=== PATIENT | female | born 1940 | race Caucasian/White ===

== ENCOUNTER 2020-10-17 11:28 | Outpatient (NON) | payer MEDICARE, SELFPAY ==
[2020-10-17 12:15] LABS: Add Urine Microscopic? YES; Appearance Urine Clear (Clear); Bacteria Urine Trace /hpf; Bilirubin Urine Negative (Negative); Blood Urine Negative (Negative); Color Urine Colorless (Yellow); Glucose Urine UA 2+ mg/dL (Negative); Ketones Urine Negative (Negative); Leukocyte Esterase Ur Trace LEU/UL (NEGATIVE); Mucus Urine Rare /lpf; Nitrate Urine Negative (Negative); Protein Urine Negative (Negative); RBC Urine 0-2 /hpf (0-2); Specific Grav Ur 1.008 (1.001-1.035); Squamous Epithelial Cell Urine Occasional /hpf (Few); Transitional Epi Cells Urine Rare /hpf (None Seen); Urobilinogen Urine Negative mg/dL (<2.0); WBC Urine 0-3 /hpf (0-3)
== END 2020-10-17 11:29 ==
PROVIDERS: PCP Family Medicine
DX: R45.1 Restlessness and agitation (principal); R00.0 Tachycardia, unspecified
CPT/HCPCS: 81001; 87086; 87088

== ENCOUNTER 2024-01-09 23:09 | Inpatient (IN) | payer MEDICARE, MEDICAID, SELFPAY ==
--- NOTE | ~2024-01-09 | XR_ITS ---
Portable chest x-ray Comparison: 09/13/2018 Clinical History: Weakness Findings: There is hazy airspace disease in the right upper lobe. There is patchy airspace disease a t the left lung base. Cardiomediastinal silhouette is stable. Bones and soft tissues are unremarkabl e. Impression: Patchy airspace disease right upper lobe and left lung base. Findings suggest multifocal pneumonia. F ollow-up to radiographic resolution is advised. Chest CT could also be considered to further evaluate , as indicated. Reviewed, dictated and finalized at location M. Impression: Patchy airspace disease right upper lobe and left lung base. Findings suggest m ultifocal pneumonia. Follow-up to radiographic resolution is advised. Chest CT could also be considered to further evaluate, as indicated.
--- NOTE | ~2024-01-09 | CT_ITS ---
CT head without contrast Indication: Status post fall Technique: Serial scans were obtained through the brain without the administration of contrast. Dose reduction technique was used on this scan by utilizing automated exposure control and iterative recon struction technique. The dose-length product (DLP) was 605.33 mGy-cm. Findings: There is no evidence of intracranial hemorrhage, mass lesion, or acute infarct. The ventri cles and subarachnoid spaces are dilated, consistent with moderate atrophy. Low attenuation regions are seen within the periventricular white matter bilaterally, likely representing changes from chroni c microvascular ischemic disease. There is no evidence of edema, mass effect or midline shift. The visualized paranasal sinuses and mastoid air cells are clear. Impression: No intracranial hemorrhage, mass, or acute infarct. Atrophy and chronic white matter changes, as above. Reviewed, dictated and finalized at location . Impression: No intracranial hemorrhage, mass, or acute infarct. Atrophy and chronic white matter changes, as above.
--- NOTE | ~2024-01-09 | CT_ITS ---
Noncontrast CT scan of the cervical spine Technique: Multiple contiguous axial [address] images of the cervical spine were obtained and rec onstructed in 2D sagittal and coronal planes on the acquisition scanner. Dose reduction technique was used on this scan by utilizing automated exposure control, adjustment of the mA and/or kV according to patient size. The dose-length product (DLP) was 325.09 mGy-cm. Clinical History: Pain Findings: No fractures or dislocations. There is mild to moderate degenerative disc change from C3 t hrough C6. No prevertebral soft tissue swelling. 5 mm right apical pulmonary nodule noted. Impression: No fracture or subluxation of the cervical spine. 5 mm right apical pulmonary nodule. According to Fleischner Society criteria, for a low-risk patient, no further follow-up required. For a high-risk patient, consider 12 month follow-up CT. Reviewed, dictated and finalized at [facility]. Impression: No fracture or subluxation of the cervical spine. 5 mm right apical pulmonary nodule. According to Fleischner Society criteria, f or a low-risk patient, no further follow-up required. For a high-risk patient, consider 12 month follow-up CT.
[2024-01-09 23:11] VITALS: BP 162/85; PULSE 88; RESP 15; TEMP 37.3; O2SAT 95
--- NOTE | 2024-01-09 23:31 | ECG_ITS ---
SEE SCANNED COPY FOR CONFIRMED REPORT MTDD
--- NOTE | 2024-01-09 23:52 | ED.GENADULT ---
HPI - General Adult General Chief complaint: Fall Stated complaint: AMS, fall 2-3 days ago Time Seen by Provider: 01/09/24 23:13 History of Present Illness HPI narrative: Patient 83-year-old female presents emergency department with chief complaint of generalized weakness and declined since fall. Several days ago the patient had a presumed ground level fall at the facility where she is a resident of the staff found the patient laying on the floor were able to get the patient up and since then she has been progressively weaker and not as active as normal. Patient does have history of dementia they have noticed that she has not been eating and drinking her normal amount they report there have been no fevers. Related Data Allergies Allergy/AdvReac Type Severity Reaction Status Date / Time No Known Allergies Allergy Unknown . Verified 09/09/20 11:36 Review of Systems Review of Systems: A 10 system review of systems was completed on the patient and is negative except for what is stated in the HPI. Nursing and ancillary documentation was reviewed. [facility] Past Medical History Medical History (Updated 01/10/24 @ 00:52 by Jaylon Zaidi MD) Anxiety Cerebrovascular accident (CVA) Essential hypertension Hypothyroidism Mild episode of recurrent major depressive disorder Mixed hyperlipidemia Type 2 diabetes mellitus without complication, without long-term current use of insulin Unhealthy alcohol drinking behavior Unilateral hearing loss Unspecified dementia without behavioral disturbance Surgical History Surgical History History of thyroidectomy Hx of hysterectomy, total Family History Family History Mother Carcinoma of colon Hypertension Other Diabetes mellitus Social History Social History Smoking status: Never smoker Second hand tobacco smoke exposure: No Alcohol intake: current Exam Narrative: GENERAL: Well-appearing, well-nourished, and in no acute distress. HEAD: Normocephalic, atraumatic. EYES: PERRLA and EOMI. ENT: Nares clear, no rhinorrhea or epistaxis. Mucous membranes moist. NECK: Supple. CHEST: Clear to auscultation. No respiratory distress. HEART: Regular rate and rhythm. No murmur heard. Normal peripheral pulses. ABDOMEN: Soft, nontender, nondistended, normal active bowel sounds. EXTREMITIES: Normal range of motion. No edema. SKIN: Warm, dry, no rash. NEURO: No focal deficits. Alert and oriented x2. PSYCH: Normal mood and affect. Course Vital Signs Vital signs: Vital Signs Temperature 37.3 C 01/09/24 23:11 Pulse Rate 88 01/09/24 23:11 Respiratory Rate 15 01/09/24 23:11 Blood Pressure 162/85 H 01/09/24 23:11 Pulse Oximetry 95 01/09/24 23:11 Oxygen Delivery Room Air 01/09/24 23:11 Temperature 37.3 C 01/09/24 23:11 Pulse Rate 98 01/10/24 00:18 Respiratory Rate 18 01/10/24 00:18 Blood Pressure 149/82 H 01/10/24 00:18 Pulse Oximetry 94 01/10/24 00:18 Oxygen Delivery Room Air 01/09/24 23:11 Medical Decision Making MDM Narrative Medical decision making narrative: Differential diagnosis includes UTI, intracranial hemorrhage, pneumonia, electrolyte abnormality, dehydration Laboratory studies were obtained on the patient showed a white count of 17.4 electrolytes showed a BUN of 18 creatinine 0.7 lactate was 1.4 troponin was less than 0.012 procalcitonin 0.2 urinalysis was turbid positive for nitrate 2+ leukocytes greater than 100 white blood cells and 4+ bacteria COVID flu and RSV were negative Chest x-ray showed no focal infiltrate Patient was started on Rocephin for UTI CT head CT C-spine were obtained Vital Signs Vital Signs: Vital Signs Temperature 37.3 C 01/09/24 23:11 Pulse Rate 88 01/09/24 23:11 Respira
[2024-01-09 23:56] LABS: Basophils Absolute Auto 0.1 K/mm3 (0.0-0.1); Basophils Percent Auto 0.3 % (0.2-1.2); Eosinophils Percent Auto 0.2 % (0-4.4); Hematocrit 43.4 % (37.0-47.0); Hemoglobin 13.7 g/dL (12.0-15.0); Immature Granulocyte Absolute 0.22 K/mm3 (0.00-0.031); Immature Granulocyte Percent A 1.3 % (0-0.5); Lymphocytes Absolute Auto 1.55 K/mm3 (0.9-3.2); Lymphocytes Percent Auto 8.9 % (18.3-44.2); Mean Corpuscular HGB Conc 31.6 g/dl (32-36); Mean Corpuscular Volume 88.6 fl (80-100); Mean Platelet Volume 9.5 fl (7.4-10.4); Monocytes Absolute Auto 1.3 K/mm3 (0.1-0.6); Monocytes Percent Auto 7.3 % (2.6-8.5); Neutrophils Absolute Auto 14.2 K/mm3 (1.3-6.7); Platelet Count Result 363 k/mm3 (150-375); Red Cell Distribution Width 13.6 % (11.5-14.5); White Blood Count 17.4 K/mm3 (4.5-10.0)
[2024-01-10] VITALS (13 sets, daily range): BP systolic 137–149; BP diastolic 60–82; PULSE 72–102; RESP 15–20; TEMP 36.3–36.4; O2SAT 94–98; BMI 26.6
[2024-01-10 00:06] LABS: INR 1.2; Prothrombin Time 15.4 Seconds (11.1-14.7)
[2024-01-10 00:07] LABS: Partial Thromboplastin Time 30.4 Seconds (22.3-36.8)
[2024-01-10 00:10] LABS: Lactic Acid Reflex 1.4 mmol/L (0.7-2.0)
[2024-01-10 00:11] LABS: Alanine Aminotransferase 19 U/L (6-35); Albumin Level 3.9 g/dL (3.5-5.1); Alkaline Phosphatase 130 U/L (38-126); Anion Gap 7 mmol/L (4-12); Aspartate Amino Transferase 33 U/L (14-36); Blood Urea Nitrogen 18 mg/dL (7-17); Calcium 8.9 mg/dL (8.4-10.2); Carbon Dioxide 32 mmol/L (22-30); Chloride 102 mmol/L (98-107); Creatine Kinase 39 U/L (30-135); Estimated Glomerular Filt Rate > 60; Glucose 287 mg/dL (65-110); Magnesium 2.1 mg/dL (1.6-2.3); Potassium 3.4 mmol/L (3.4-5.0); Sodium 141 mmol/L (137-145)
[2024-01-10 00:22] LABS: Troponin I < 0.012 ng/mL (0.000-0.034)
[2024-01-10 00:26] LABS: Procalcitonin 0.2 ng/mL
[2024-01-10 00:28] LABS: Add Urine Microscopic? YES; Appearance Urine Turbid (Clear); Bacteria Urine 4+ /hpf; Bilirubin Urine Negative (Negative); Blood Urine 1+ (Negative); Budding Yeast Urine Present /hpf; Color Urine Dark Yellow (Yellow); Glucose Urine UA 3+ mg/dL (Negative); Ketones Urine 2+ mg/dL (Negative); Leukocyte Esterase Ur 2+ LEU/UL (Negative); Mucus Urine Present /lpf; Need Manual Microscopic Reviewed; Nitrate Urine Positive (Negative); Protein Urine 2+ mg/dL (Negative); Specific Grav Ur 1.034 (1.001-1.035); Squamous Epithelial Cell Urine Occasional /hpf (Few); WBC Urine >100 /hpf (0-3); pH Urine 5.5 (5.0-9.0)
[2024-01-10 00:46] LABS: Influenza A QL RT-PCR Negative (Negative); Influenza B QL RT-PCR Negative (Negative); RSV RNA, RT-PCR Negative (Negative); SARS-CoV-2 RNA PCR Negative (Negative)
--- NOTE | 2024-01-10 05:40 | ADMGEN ---
This patient, Janelle Ring, was admitted to 2 Medical Room 247-. Patient/family oriented to hospital policies and general routines including ID bracelet, bed and alarms, visiting hours, pain management, procedures, bathroom and other care routines, personal items, smoking policy, room service/diet, and visiting hours. Information on how to activate the Rapid Response Team has been discussed. Patient/Family are encouraged to report perceived risks to care and to ask questions if they do not understand what they are told or what they should do.
[2024-01-10 06:18] LABS: Troponin I < 0.012 ng/mL (0.000-0.034)
--- NOTE | 2024-01-10 07:02 | PM.IMHP ---
H&P: HPI History of Present Illness Date/Time: 01/10/24 07:02 Chief Complaint: fall, weakness Narrative: This is an 83-year-old with a past medical history significant for anxiety, CVA, hypertension, hypothyroidism, depression, mixed hyperlipidemia, type 2 diabetes, and dementia who presents from [facility] after suffering a ground level fall that occurred a few days ago. Patient was not initially sent to the ER for evaluation at time of fall. She has progressively gotten weaker over the last few days prompting staff to have her evaluated. She is a pleasantly confused lady who has the ability to answer all of my orientation questions by reading her white board. When I asked why she was brought to the hospital she says that she doesn't know as she is feeling fine. I asked if she recently had a fall at her [facility] but she denies this. She denies any and all complaints. When discussing her surgical history she states she has none, but review of medical chart shows hysterectomy and thyroidectomy. The remainder of the H&P is supplemented from review of the medical chart. An the ED, labs were significant for a white count of 17.4 with a UA concerning for UTI. Lactic acid normal at 1.4. Chest x-ray is concerning for patchy airspace disease to right upper and left lung base consistent with multifocal pneumonia. Her head CT was negative for acute intracranial findings. Cervical some spine CT negative for fracture or subluxation. There was an incidental 5 mm right apical pulmonary nodule found. Blood cultures and urine cultures were drawn and patient received 1 g of Rocephin. She is being admitted to the hospitalist service for continued care surrounding pneumonia and UTI. She will benefit from PT and OT consultation for her progressive weakness. [facility] Past Medical History Medical History Anxiety Cerebrovascular accident (CVA) Essential hypertension Hypothyroidism Mild episode of recurrent major depressive disorder Mixed hyperlipidemia Type 2 diabetes mellitus without complication, without long-term current use of insulin Unhealthy alcohol drinking behavior Unilateral hearing loss Unspecified dementia without behavioral disturbance Surgical History Surgical History History of thyroidectomy Hx of hysterectomy, total Family History Family History Mother Carcinoma of colon Hypertension Other Diabetes mellitus Social History Social History (Updated 01/10/24 @ 10:49 by Rowena Rice APRN) Smoking status: Never smoker Second hand tobacco smoke exposure: No Alcohol intake: current Alcohol use details: patient states she drinks 1-2 beers a day. Unsure if this is true or not since she is at a facility. Substance use: never Do You Feel Safe in your Home?: Yes Lack of Transportation: No Lack of Food: Never True Current Housing: I Have Housing Concerned About Future Housing: No Difficulty Paying Gas/Electric Bills: No Difficulty Paying for Meds: No Currently Unemployed: No Education: Don't Know Difficulty w/ Childcare or Family Care: No Spiritual care concerns: No Meds Home Medications and Allergies Home Medications Medication Instructions Recorded Confirmed Type simvastatin 20 mg tablet 20 mg PO DAILY #90 tabs 09/09/20 01/10/24 Rx levothyroxine 25 mcg tablet 25 mcg PO DAILY #90 tabs 02/08/21 01/10/24 Rx buspirone 7.5 mg tablet 7.5 mg PO BID 01/10/24 01/10/24 History divalproex 125 mg tablet,delayed 125 mg PO BID 01/10/24 01/10/24 History release donepezil 5 mg tablet (Aricept) 10 mg PO DAILY 01/10/24 01/10/24 History losartan 25 mg tablet 50 mg PO DAILY 01/10/24 01/10/24 History memantine 5 mg tablet 5 mg PO BID 01/10/24 01/10/24 History polyethylene glycol 3350 17 gram 17 g PO DAILY PRN Constipation 01/10/24
[2024-01-10 08:19] LABS: Hemoglobin A1C 8.8 % (<5.7)
[2024-01-10 08:30] LABS: Procalcitonin 0.2 ng/mL
[2024-01-10 08:36] LABS: Glucose Point of Care 249 mg/dl (65-105)
[2024-01-10 08:55] LABS: Basophils Absolute Auto 0.1 K/mm3 (0.0-0.1); Basophils Percent Auto 0.3 % (0.2-1.2); Eosinophils Percent Auto 0.3 % (0-4.4); Hematocrit 43.8 % (37.0-47.0); Hemoglobin 13.7 g/dL (12.0-15.0); Immature Granulocyte Absolute 0.17 K/mm3 (0.00-0.031); Immature Granulocyte Percent A 1.1 % (0-0.5); Lymphocytes Absolute Auto 1.67 K/mm3 (0.9-3.2); Lymphocytes Percent Auto 11.1 % (18.3-44.2); Mean Corpuscular HGB Conc 31.3 g/dl (32-36); Mean Corpuscular Hemoglobin 28.5 pg (26-34); Mean Corpuscular Volume 91.1 fl (80-100); Mean Platelet Volume 9.9 fl (7.4-10.4); Monocytes Percent Auto 6.7 % (2.6-8.5); Neutrophils Absolute Auto 12.2 K/mm3 (1.3-6.7); Neutrophils Percent Auto 80.5 % (45.5-73.1); Platelet Count Result 358 k/mm3 (150-375); Red Blood Count 4.81 M/mm3 (4.2-5.4); Red Cell Distribution Width 13.5 % (11.5-14.5); White Blood Count 15.1 K/mm3 (4.5-10.0)
[2024-01-10] MEDS: LEVOTHYROXINE SODIUM 25 MCG TABLET PO (08:56)
[2024-01-10] MEDS: busPIRone HCL 2.5 MG TABLET 7.5 MG PO ×2 (08:56→19:47)
[2024-01-10] MEDS: MEMANTINE 5 MG TABLET PO ×2 (08:57→17:48)
[2024-01-10] MEDS: AZITHROMYCIN 500 MG/NS 250 ML 500 MG/250 ML BAG 250 MG IVPB (08:57)
[2024-01-10] MEDS: LOSARTAN POTASSIUM 25 MG TABLET 50 MG PO (08:57)
[2024-01-10] MEDS: SIMVASTATIN 20 MG TABLET PO (08:57)
[2024-01-10] MEDS: guaiFENesin 12 HR 600 MG TABCR 1200 MG PO ×2 (08:57→19:47)
[2024-01-10] MEDS: DONEPEZIL HCL 5 MG TABLET 10 MG PO (08:57)
[2024-01-10] MEDS: DIVALPROEX SODIUM DR 125 MG TABEC PO ×2 (08:57→17:48)
[2024-01-10] MEDS: INSULIN ASPART (*BKC) 100 UNITS/ML SUB-Q (08:58)
[2024-01-10 09:01] LABS: Alanine Aminotransferase 18 U/L (6-35); Albumin Level 3.7 g/dL (3.5-5.1); Alkaline Phosphatase 116 U/L (38-126); Anion Gap 8 mmol/L (4-12); Aspartate Amino Transferase 33 U/L (14-36); Bilirubin,Total 0.9 mg/dL (0.2-1.3); Blood Urea Nitrogen 19 mg/dL (7-17); Calcium 8.8 mg/dL (8.4-10.2); Carbon Dioxide 31 mmol/L (22-30); Chloride 106 mmol/L (98-107); Estimated CRCL calculation 40 ml/min; Estimated Glomerular Filt Rate > 60; Glucose 243 mg/dL (65-110); Potassium 3.7 mmol/L (3.4-5.0); Sodium 145 mmol/L (137-145)
[2024-01-10] MEDS: ENOXAPARIN 40 MG/0.4 ML SYRINGE SUB-Q (09:17)
[2024-01-10 11:47] LABS: Glucose Point of Care 171 mg/dl (65-105)
[2024-01-10] MEDS: IPRATROPIUM 0.5 MG/ALBUTEROL SULFATE 2.5 MG AMPUL.NEB 3 ML INHALATION ×2 (13:47→20:20)
[2024-01-10 17:05] LABS: Glucose Point of Care 182 mg/dl (65-105)
[2024-01-10] MEDS: cefTRIAXone 2 GM/NS 100 ML 2 GM/100 ML BAG IVPB (19:55)
[2024-01-10 21:00] LABS: Glucose Point of Care 220 mg/dl (65-105)
[2024-01-11] VITALS (12 sets, daily range): BP systolic 139–158; BP diastolic 65–72; PULSE 81–109; RESP 17–18; TEMP 36.4–37.3; O2SAT 93–98
[2024-01-11] MEDS: IPRATROPIUM 0.5 MG/ALBUTEROL SULFATE 2.5 MG AMPUL.NEB 3 ML INHALATION ×4 (02:35→20:05)
[2024-01-11 05:37] LABS: Basophils Percent Auto 0.2 % (0.2-1.2); Eosinophils Absolute Auto 0.1 K/mm3 (0-0.3); Eosinophils Percent Auto 0.4 % (0-4.4); Hematocrit 41.5 % (37.0-47.0); Immature Granulocyte Absolute 0.13 K/mm3 (0.00-0.031); Immature Granulocyte Percent A 1.1 % (0-0.5); Lymphocytes Absolute Auto 1.41 K/mm3 (0.9-3.2); Lymphocytes Percent Auto 11.7 % (18.3-44.2); Mean Corpuscular HGB Conc 31.3 g/dl (32-36); Mean Corpuscular Hemoglobin 28.3 pg (26-34); Mean Corpuscular Volume 90.4 fl (80-100); Mean Platelet Volume 9.6 fl (7.4-10.4); Monocytes Absolute Auto 0.9 K/mm3 (0.1-0.6); Monocytes Percent Auto 7.5 % (2.6-8.5); Neutrophils Absolute Auto 9.6 K/mm3 (1.3-6.7); Neutrophils Percent Auto 79.1 % (45.5-73.1); Platelet Count Result 312 k/mm3 (150-375); Red Blood Count 4.59 M/mm3 (4.2-5.4); Red Cell Distribution Width 13.4 % (11.5-14.5); White Blood Count 12.1 K/mm3 (4.5-10.0)
[2024-01-11 05:47] LABS: Alanine Aminotransferase 15 U/L (6-35); Albumin Level 3.3 g/dL (3.5-5.1); Alkaline Phosphatase 110 U/L (38-126); Anion Gap 7 mmol/L (4-12); Aspartate Amino Transferase 26 U/L (14-36); Bilirubin,Total 0.6 mg/dL (0.2-1.3); Blood Urea Nitrogen 16 mg/dL (7-17); Calcium 8.4 mg/dL (8.4-10.2); Carbon Dioxide 32 mmol/L (22-30); Chloride 104 mmol/L (98-107); Estimated CRCL calculation 45 ml/min; Estimated Glomerular Filt Rate > 60; Glucose 173 mg/dL (65-110); Magnesium 2.1 mg/dL (1.6-2.3); Potassium 3.3 mmol/L (3.4-5.0); Sodium 143 mmol/L (137-145)
[2024-01-11 06:03] LABS: Procalcitonin 0.2 ng/mL
[2024-01-11] MEDS: LEVOTHYROXINE SODIUM 25 MCG TABLET PO (06:28)
--- NOTE | 2024-01-11 07:44 | P.PNIM_ITS ---
Progress Note: A&P Assessment and Plan (1) Pneumonia: Code(s): J18.9 - Pneumonia, unspecified organism Status: Acute Assessment and Plan: Chest XR concerning for multifocal pneumonia * Blood cultures, sputum culture, and urine cultures pending * Urine Legionella, pneumococcal, and IgM mycoplasma pending * Started on Rocephin and Zithromax * DuoNebs scheduled Q 6 * Guaifenesin b.i.d. * Incentive spirometry if patient is able * Out of bed to chair 01/10: * preliminary blood cultures NGTD * urine culture pending (2) Acute UTI: Code(s): N39.0 - Urinary tract infection, site not specified Status: Acute Assessment and Plan: UA grossly positive for UTI * Started on Rocephin * Urine culture pending 01/10: * urine culture growing Gram-negative bacilli * output 300 ml with 3 incontinent (3) Generalized weakness: Code(s): R53.1 - Weakness Status: Acute Assessment and Plan: Progressive weakness after falling a few days ago * CT head negative * PT/OT consulted, rec's appreciated (4) Unspecified dementia without behavioral disturbance: Code(s): F03.90 - Unspecified dementia, unspecified severity, without behavioral disturbance, psychotic disturbance, mood disturbance, and anxiety Status: Acute Assessment and Plan: Continue with home donepezil and memantine (5) Type 2 diabetes mellitus without complication, without long-term current use of insulin: Code(s): E11.9 - Type 2 diabetes mellitus without complications Status: Acute Assessment and Plan: Currently not on home medications * hemoglobin A1C ordered * glucose 287 on BMP * AC/HS accu checks * hypoglycemia protocol with high SSI given BMI > 60kg * diabetic diet ordered (6) Hypothyroidism: Code(s): E03.9 - Hypothyroidism, unspecified Status: Acute Assessment and Plan: On levothyroxine 25 mcg daily * TSH normal (7) Essential hypertension: Code(s): I10 - Essential (primary) hypertension Status: Acute Assessment and Plan: On losartan 50 mg daily * systolic BP consistently in the 140's * continue losartan Plan Feeding: diabetic diet Analgesia:tylenol Thromboembolic prophylaxis: lovenox Ulcer prophylaxis: na Glycemic control: aacu check, SSI high dose Bowel regimen: miralax Lines: PIV Antibiotics: Rocephin and azithromycin Disposition: pending PT/OT consult. Previously at [facility] Subjective Date/time seen: 01/11/24 07:44 Interval history: 01/10: Mrs. Ring is seen sitting up in the chair. She is in no acute distress. She denies any complaints this time. Urine culture growing Gram-negative bacilli. Await sensitivities. Review of Systems Review of Systems: All systems reviewed & are unremarkable except as noted in HPI and below Exam Narrative: General: well appearing, appears stated age. HEENT: normocephalic, atraumatic. Mucous membranes moist. EOMI, PERRLA, bila teral sclera anicteric, no conjunctival injection. Neck supple without JVD, lymphadenopathy, or bruit. Respiratory: coarse crackles to BLL on auscultation. No rales/rhonic/wheezes. Cardiovascular: Regular rate and rhythm, normal S1-S2 upon auscultation. No murmurs, rubs, or clicks. PMI is nondisplaced, capillary refill less than 3 second. Abdomen: Soft, round, no pulsatile masses, nondistended and nontender. No rebound, no guarding. No CVA tenderness, no hepatos
--- NOTE | 2024-01-11 07:44 | PM.IMPN ---
Progress Note: A&P Assessment and Plan (1) Pneumonia: Code(s): J18.9 - Pneumonia, unspecified organism Status: Acute Assessment and Plan: Chest XR concerning for multifocal pneumonia Blood cultures, sputum culture, and urine cultures pending Urine Legionella, pneumococcal, and IgM mycoplasma pending Started on Rocephin and Zithromax DuoNebs scheduled Q 6 Guaifenesin b.i.d. Incentive spirometry if patient is able Out of bed to chair 01/10: preliminary blood cultures NGTD urine culture pending (2) Acute UTI: Code(s): N39.0 - Urinary tract infection, site not specified Status: Acute Assessment and Plan: UA grossly positive for UTI Started on Rocephin Urine culture pending 01/10: urine culture growing Gram-negative bacilli output 300 ml with 3 incontinent (3) Generalized weakness: Code(s): R53.1 - Weakness Status: Acute Assessment and Plan: Progressive weakness after falling a few days ago CT head negative PT/OT consulted, rec's appreciated (4) Unspecified dementia without behavioral disturbance: Code(s): F03.90 - Unspecified dementia, unspecified severity, without behavioral disturbance, psychotic disturbance, mood disturbance, and anxiety Status: Acute Assessment and Plan: Continue with home donepezil and memantine (5) Type 2 diabetes mellitus without complication, without long-term current use of insulin: Code(s): E11.9 - Type 2 diabetes mellitus without complications Status: Acute Assessment and Plan: Currently not on home medications hemoglobin A1C ordered glucose 287 on BMP AC/HS accu checks hypoglycemia protocol with high SSI given BMI > 60kg diabetic diet ordered (6) Hypothyroidism: Code(s): E03.9 - Hypothyroidism, unspecified Status: Acute Assessment and Plan: On levothyroxine 25 mcg daily TSH normal (7) Essential hypertension: Code(s): I10 - Essential (primary) hypertension Status: Acute Assessment and Plan: On losartan 50 mg daily systolic BP consistently in the 140's continue losartan Plan Feeding: diabetic diet Analgesia:tylenol Thromboembolic prophylaxis: lovenox Ulcer prophylaxis: na Glycemic control: aacu check, SSI high dose Bowel regimen: miralax Lines: PIV Antibiotics: Rocephin and azithromycin Disposition: pending PT/OT consult. Previously at [facility] Subjective Date/time seen: 01/11/24 07:44 Interval history: 01/10: Mrs. Ring is seen sitting up in the chair. She is in no acute distress. She denies any complaints this time. Urine culture growing Gram-negative bacilli. Await sensitivities. Review of Systems Review of Systems: All systems reviewed & are unremarkable except as noted in HPI and below Exam Narrative: General: well appearing, appears stated age. HEENT: normocephalic, atraumatic. Mucous membranes moist. EOMI, PERRLA, bilateral sclera anicteric, no conjunctival injection. Neck supple without JVD, lymphadenopathy, or bruit. Respiratory: coarse crackles to BLL on auscultation. No rales/rhonic/wheezes. Cardiovascular: Regular rate and rhythm, normal S1-S2 upon auscultation. No murmurs, rubs, or clicks. PMI is nondisplaced, capillary refill less than 3 second. Abdomen: Soft, round, no pulsatile masses, nondistended and nontender. No rebound, no guarding. No CVA tenderness, no hepatosplenomegaly. Bowel sounds present to all four quadrants. No high pitch or tinkling sounds, resonant to percussion. Extremities: No cyanosis, clubbing, or edema present. Pulses are palpable 2/2. Active ROM to all four extremities. Neuro: Alert and orientated x 4 but confused at times 2/2 known dementia. PERRLA. Cranial nerves 2-12 intact without focal deficit. Skin: Warm, dry, and intact, without rash, erythema, or lesion. Lines: Incisions: Psych: pleasant, cooperative, normal speech, normal affe
[2024-01-11 08:05] LABS: Glucose Point of Care 164 mg/dl (65-105)
[2024-01-11] MEDS: DONEPEZIL HCL 5 MG TABLET 10 MG PO (09:08)
[2024-01-11] MEDS: busPIRone HCL 2.5 MG TABLET 7.5 MG PO ×2 (09:09→20:08)
[2024-01-11] MEDS: SIMVASTATIN 20 MG TABLET PO (09:09)
[2024-01-11] MEDS: POTASSIUM CHLORIDE 20 MEQ ER TABLET 40 MEQ PO (09:09)
[2024-01-11] MEDS: DIVALPROEX SODIUM DR 125 MG TABEC PO ×2 (09:09→16:54)
[2024-01-11] MEDS: guaiFENesin 12 HR 600 MG TABCR 1200 MG PO ×2 (09:09→20:08)
[2024-01-11] MEDS: LOSARTAN POTASSIUM 25 MG TABLET 50 MG PO (09:09)
[2024-01-11] MEDS: ENOXAPARIN 40 MG/0.4 ML SYRINGE SUB-Q (09:10)
[2024-01-11] MEDS: MEMANTINE 5 MG TABLET PO ×2 (09:10→16:54)
[2024-01-11] MEDS: AZITHROMYCIN 500 MG/NS 250 ML 500 MG/250 ML BAG 250 MG IVPB (09:13)
[2024-01-11 12:10] LABS: Glucose Point of Care 284 mg/dl (65-105)
[2024-01-11] MEDS: INSULIN ASPART (*BKC) 100 UNITS/ML SUB-Q ×2 (13:48→16:53)
[2024-01-11 16:42] LABS: Glucose Point of Care 241 mg/dl (65-105)
[2024-01-11] MEDS: cefTRIAXone 2 GM/NS 100 ML 2 GM/100 ML BAG IVPB (20:10)
[2024-01-11 22:03] LABS: Glucose Point of Care 172 mg/dl (65-105)
[2024-01-12] VITALS (7 sets, daily range): BP systolic 148; BP diastolic 65–68; PULSE 83–94; RESP 16–20; TEMP 36.6–36.9; O2SAT 94–96
[2024-01-12] MEDS: IPRATROPIUM 0.5 MG/ALBUTEROL SULFATE 2.5 MG AMPUL.NEB 3 ML INHALATION ×2 (02:16→13:48)
[2024-01-12 05:17] LABS: Basophils Percent Auto 0.4 % (0.2-1.2); Eosinophils Absolute Auto 0.1 K/mm3 (0-0.3); Eosinophils Percent Auto 0.5 % (0-4.4); Hematocrit 39.9 % (37.0-47.0); Hemoglobin 12.3 g/dL (12.0-15.0); Immature Granulocyte Absolute 0.13 K/mm3 (0.00-0.031); Immature Granulocyte Percent A 1.2 % (0-0.5); Lymphocytes Absolute Auto 1.35 K/mm3 (0.9-3.2); Lymphocytes Percent Auto 12.2 % (18.3-44.2); Mean Corpuscular HGB Conc 30.8 g/dl (32-36); Mean Corpuscular Hemoglobin 27.6 pg (26-34); Mean Corpuscular Volume 89.7 fl (80-100); Mean Platelet Volume 9.4 fl (7.4-10.4); Monocytes Absolute Auto 0.9 K/mm3 (0.1-0.6); Monocytes Percent Auto 7.8 % (2.6-8.5); Neutrophils Absolute Auto 8.6 K/mm3 (1.3-6.7); Neutrophils Percent Auto 77.9 % (45.5-73.1); Platelet Count Result 298 k/mm3 (150-375); Red Blood Count 4.45 M/mm3 (4.2-5.4); Red Cell Distribution Width 13.3 % (11.5-14.5); White Blood Count 11.1 K/mm3 (4.5-10.0)
[2024-01-12 06:13] LABS: Procalcitonin 0.1 ng/mL
[2024-01-12 06:18] LABS: Alanine Aminotransferase 13 U/L (6-35); Albumin Level 3.1 g/dL (3.5-5.1); Alkaline Phosphatase 98 U/L (38-126); Anion Gap 3 mmol/L (4-12); Aspartate Amino Transferase 25 U/L (14-36); Bilirubin,Total 0.6 mg/dL (0.2-1.3); Blood Urea Nitrogen 14 mg/dL (7-17); Calcium 8.4 mg/dL (8.4-10.2); Carbon Dioxide 31 mmol/L (22-30); Chloride 106 mmol/L (98-107); Estimated CRCL calculation 45 ml/min; Estimated Glomerular Filt Rate > 60; Glucose 173 mg/dL (65-110); Magnesium 2.1 mg/dL (1.6-2.3); Potassium 3.7 mmol/L (3.4-5.0); Sodium 140 mmol/L (137-145)
[2024-01-12] MEDS: LEVOTHYROXINE SODIUM 25 MCG TABLET PO (06:24)
[2024-01-12 08:09] LABS: Glucose Point of Care 152 mg/dl (65-105)
[2024-01-12] MEDS: NITROFURANTOIN MONOHYD MACROCR 100 MG CAP PO (09:55)
[2024-01-12] MEDS: DIVALPROEX SODIUM DR 125 MG TABEC PO (09:55)
[2024-01-12] MEDS: SIMVASTATIN 20 MG TABLET PO (09:55)
[2024-01-12] MEDS: DONEPEZIL HCL 5 MG TABLET 10 MG PO (09:55)
[2024-01-12] MEDS: guaiFENesin 12 HR 600 MG TABCR 1200 MG PO (09:55)
[2024-01-12] MEDS: LOSARTAN POTASSIUM 25 MG TABLET 50 MG PO (09:55)
[2024-01-12] MEDS: busPIRone HCL 2.5 MG TABLET 7.5 MG PO (09:55)
[2024-01-12] MEDS: MEMANTINE 5 MG TABLET PO (09:55)
[2024-01-12] MEDS: ENOXAPARIN 40 MG/0.4 ML SYRINGE SUB-Q (09:56)
[2024-01-12] MEDS: AZITHROMYCIN 500 MG/NS 250 ML 500 MG/250 ML BAG 250 MG IVPB (09:56)
--- NOTE | 2024-01-12 10:21 | P.DS_ITS ---
DS: Admitting Diagnosis Discharge Date 01/11 Admitting Diagnosis worsening altered mental status, fall DS: Discharge Diagnosis Discharge Diagnosis (1) Pneumonia: Code(s): J18.9 - Pneumonia, unspecified organism Status: Acute Assessment and Plan: Chest XR concerning for multifocal pneumonia * Blood cultures, sputum culture, and urine cultures pending * Urine Legionella, pneumococcal, and IgM mycoplasma pending * Started on Rocephin and Zithromax * DuoNebs scheduled Q 6 * Guaifenesin b.i.d. * Incentive spirometry if patient is able * Out of bed to chair 01/10: * preliminary blood cultures NGTD * urine culture pending (2) Acute UTI: Code(s): N39.0 - Urinary tract infection, site not specified Status: Acute Assessment and Plan: UA grossly positive for UTI * Started on Rocephin * Urine culture pending 01/10: * urine culture growing Gram-negative bacilli * output 300 ml with 3 incontinent (3) Generalized weakness: Code(s): R53.1 - Weakness Status: Acute Assessment and Plan: Progressive weakness after falling a few days ago * CT head negative * PT/OT consulted, rec's appreciated (4) Unspecified dementia without behavioral disturbance: Code(s): F03.90 - Unspecified dementia, unspecified severity, without behavioral disturbance, psychotic disturbance, mood disturbance, and anxiety Status: Acute Assessment and Plan: Continue with home donepezil and memantine (5) Type 2 diabetes mellitus without complication, without long-term current use of insulin: Code(s): E11.9 - Type 2 diabetes mellitus without complications Status: Acute Assessment and Plan: Currently not on home medications * hemoglobin A1C ordered * glucose 287 on BMP * AC/HS accu checks * hypoglycemia protocol with high SSI given BMI > 60kg * diabetic diet ordered (6) Hypothyroidism: Code(s): E03.9 - Hypothyroidism, unspecified Status: Acute Assessment and Plan: On levothyroxine 25 mcg daily * TSH normal (7) Essential hypertension: Code(s): I10 - Essential (primary) hypertension Status: Acute Assessment and Plan: On losartan 50 mg daily * systolic BP consistently in the 140's * continue losartan Plan Feeding: diabetic diet Analgesia:tylenol Thromboembolic prophylaxis: lovenox Ulcer prophylaxis: na Glycemic control: aacu check, SSI high dose Bowel regimen: miralax Lines: PIV Antibiotics: Rocephin and azithromycin Disposition: pending PT/OT consult. Previously at [facility] DS: Summary Hospital Course Reason for hospitalization: urinary tract infection, community acquired pneumonia Hospital Course: 83-year-old female who presented with altered mental status worsened from baseline and recent fall. She was found have UTI and pneumonia. She was treated with IV antibiotics. Urine culture growing E coli sensitive to Augmentin. She improved over the course of a couple of days with IV antibiotic therapy. Her lung sounds are clear today and she is satting 98% on room air. Transition oral antibiotics (Augmentin and azithromycin) at discharge for 3 more days. Labs and vitals reviewed and she is stable to be discharged back to her facility today. Status at Discharge Cognitive/behavioral status at discharge: Confused Time Spent with Patient Time attestation: Total time spent providing and/or coordinating discharge services:52 Exam
--- NOTE | 2024-01-12 10:21 | PM.DS ---
DS: Admitting Diagnosis Discharge Date 01/11 Admitting Diagnosis worsening altered mental status, fall DS: Discharge Diagnosis Discharge Diagnosis (1) Pneumonia: Code(s): J18.9 - Pneumonia, unspecified organism Status: Acute Assessment and Plan: Chest XR concerning for multifocal pneumonia Blood cultures, sputum culture, and urine cultures pending Urine Legionella, pneumococcal, and IgM mycoplasma pending Started on Rocephin and Zithromax DuoNebs scheduled Q 6 Guaifenesin b.i.d. Incentive spirometry if patient is able Out of bed to chair 01/10: preliminary blood cultures NGTD urine culture pending (2) Acute UTI: Code(s): N39.0 - Urinary tract infection, site not specified Status: Acute Assessment and Plan: UA grossly positive for UTI Started on Rocephin Urine culture pending 01/10: urine culture growing Gram-negative bacilli output 300 ml with 3 incontinent (3) Generalized weakness: Code(s): R53.1 - Weakness Status: Acute Assessment and Plan: Progressive weakness after falling a few days ago CT head negative PT/OT consulted, rec's appreciated (4) Unspecified dementia without behavioral disturbance: Code(s): F03.90 - Unspecified dementia, unspecified severity, without behavioral disturbance, psychotic disturbance, mood disturbance, and anxiety Status: Acute Assessment and Plan: Continue with home donepezil and memantine (5) Type 2 diabetes mellitus without complication, without long-term current use of insulin: Code(s): E11.9 - Type 2 diabetes mellitus without complications Status: Acute Assessment and Plan: Currently not on home medications hemoglobin A1C ordered glucose 287 on BMP AC/HS accu checks hypoglycemia protocol with high SSI given BMI > 60kg diabetic diet ordered (6) Hypothyroidism: Code(s): E03.9 - Hypothyroidism, unspecified Status: Acute Assessment and Plan: On levothyroxine 25 mcg daily TSH normal (7) Essential hypertension: Code(s): I10 - Essential (primary) hypertension Status: Acute Assessment and Plan: On losartan 50 mg daily systolic BP consistently in the 140's continue losartan Plan Feeding: diabetic diet Analgesia:tylenol Thromboembolic prophylaxis: lovenox Ulcer prophylaxis: na Glycemic control: aacu check, SSI high dose Bowel regimen: miralax Lines: PIV Antibiotics: Rocephin and azithromycin Disposition: pending PT/OT consult. Previously at [facility] DS: Summary Hospital Course Reason for hospitalization: urinary tract infection, community acquired pneumonia Hospital Course: 83-year-old female who presented with altered mental status worsened from baseline and recent fall. She was found have UTI and pneumonia. She was treated with IV antibiotics. Urine culture growing E coli sensitive to Augmentin. She improved over the course of a couple of days with IV antibiotic therapy. Her lung sounds are clear today and she is satting 98% on room air. Transition oral antibiotics (Augmentin and azithromycin) at discharge for 3 more days. Labs and vitals reviewed and she is stable to be discharged back to her facility today. Status at Discharge Cognitive/behavioral status at discharge: Confused Time Spent with Patient Time attestation: Total time spent providing and/or coordinating discharge services:52 Exam Narrative: General: well appearing, appears stated age. HEENT: normocephalic, atraumatic. Mucous membranes moist. EOMI, PERRLA, bilateral sclera anicteric, no conjunctival injection. Neck supple without JVD, lymphadenopathy, or bruit. Respiratory: Diminished to BLL on auscultation. No rales/rhonic/wheezes. Cardiovascular: Regular rate and rhythm, normal S1-S2 upon auscultation. No murmurs, rubs, or clicks. PMI is nondisplaced, capillary refill less than 3 second. Abdomen: Sof
[2024-01-12 11:40] LABS: Glucose Point of Care 199 mg/dl (65-105)
[2024-01-12 12:05] LABS: SARS-CoV-2 RNA PCR Negative (Negative)
--- NOTE | 2024-01-12 15:27 | PC.NURSE ---
called facility, [facility], to give report, spoke with Narendra. RN, Sherley Vernon, was told that facility would call back for report.
[2024-01-12 16:45] LABS: Glucose Point of Care 167 mg/dl (65-105)
[2024-01-16 17:43] LABS: Pneumococcal Antigen Urine NOT DETECTED
[2024-01-18 21:43] LABS: Legionella pneumophila Ag Ur NOT DETECTED
[2024-01-23 22:09] LABS: Mycoplasma IgM Antibody Titer 278 U/mL
== END 2024-01-12 17:30 | DRG 689 ==
LOC: ANHED 01-10 00:52 → ANH2MED 01-10 05:10
PROVIDERS: Admitting Provider Internal Medicine; Emergency Provider Emergency Medicine; PCP Family Medicine; Visit Provider Nurse Practitioner Acute Care
DX: N39.0 Urinary tract infection, site not specified (principal); J18.9 Pneumonia, unspecified organism; B96.20 Unspecified Escherichia coli [E. coli] as the cause of diseases classified elsewhere; Z20.822 Contact with and (suspected) exposure to COVID-19; F03.90 Unspecified dementia, unspecified severity, without behavioral disturbance, psychotic disturbance, mood disturbance, and anxiety; E11.9 Type 2 diabetes mellitus without complications; R53.1 Weakness; W19.XXXA Unspecified fall, initial encounter; E03.9 Hypothyroidism, unspecified; I10 Essential (primary) hypertension; F41.9 Anxiety disorder, unspecified; E78.2 Mixed hyperlipidemia; R91.1 Solitary pulmonary nodule; F32.A Depression, unspecified; Z86.73 Personal history of transient ischemic attack (TIA), and cerebral infarction without residual deficits; Z90.710 Acquired absence of both cervix and uterus
CPT/HCPCS: 36415; 70450; 71045; 72125; 80053; 81001; 82550; 82948; 83036; 83605; 83735; 84145; 84443; 84484; 85025; 85610; 85730; 86738; 87040; 87077; 87086; 87088; 87186; 87449; 87635; 87637; 87899; 93005; 94640; 94667; 96365; 97161; 97165; 99285; A9270; G0378; J0456; J0696; J1650; J1815

== ENCOUNTER 2024-07-04 12:36 | Emergency (ER) | payer MEDICARE, MEDICAID, SELFPAY ==
--- NOTE | ~2024-07-04 | CT_ITS ---
CORRECTED REPORT report was moved to account [id number] from [id number] [facility] 07/14/24 This report was recreated on 07/14/24. Original report was [employer] EXAMINATION: CT abdomen pelvis w con DATE: 07/04/2024 14:49 INDICATION: abdominal pain TECHNIQUE: Computed tomography (CT) of the abdomen and pelvis was performed with 100 mL Omnipaque-350 intravenous contrast. Automated exposure control and iterative reconstruction technique were employed. The dose-length product was 726.42 mGy-cm. COMPARISON: None. FINDINGS: Lower thorax: Unremarkable Liver: Normal. Biliary/Gallbladder: Gallbladder is absent. No bile duct dilation. Pancreas: No mass or duct dilation. Spleen: Normal. Adrenals:No mass. Kidneys: No suspicious mass, obstructing stone, or hydronephrosis. GI tract: Prior gastric surgery. Mild colonic wall edema in the descending and sigmoid colon. More diffuse colonic submucosal fat as can be seen with chronic IBD, obesity, chemotherapy treatment, and celiac disease. No small or large bowel dilation. Normal appendix. Diverticulosis without diverticulitis. Mesentery/Peritoneum: No ascites, mass, or free air. Retroperitoneum: No mass. Pelvis: Normal urinary bladder. Absent uterus. Normal bilateral ovaries. Soft Tissues: Soft tissues and body wall unremarkable. Bones: No acute osseous finding. Severe bilateral hip osteoarthritis IMPRESSION: Mild distal colonic wall edema as can be seen with colitis. Otherwise, no acute abdominopelvic process detected Reviewed, dictated and finalized at location K. [employer]IST MTDD
--- NOTE | ~2024-07-04 | CT_ITS ---
EXAMINATION: CT abdomen pelvis w con DATE: 07/04/2024 14:49 INDICATION: abdominal pain TECHNIQUE: Computed tomography (CT) of the abdomen and pelvis was performed with 100 mL Omnipaque-350 intravenous contrast. Automated exposure control and iterative reconstruction technique were employe d. The dose-length product was 726.42 mGy-cm. COMPARISON: None. FINDINGS: Lower thorax: Unremarkable Liver: Normal. Biliary/Gallbladder: Gallbladder is absent. No bile duct dilation. Pancreas: No mass or duct dilation. Spleen: Normal. Adrenals:No mass. Kidneys: No suspicious mass, obstructing stone, or hydronephrosis. GI tract: Prior gastric surgery. Mild colonic wall edema in the descending and sigmoid colon. More di ffuse colonic submucosal fat as can be seen with chronic IBD, obesity, chemotherapy treatment, and ce liac disease. No small or large bowel dilation. Normal appendix. Diverticulosis without diverticulit is. Mesentery/Peritoneum: No ascites, mass, or free air. Retroperitoneum: No mass. Pelvis: Normal urinary bladder. Absent uterus. Normal bilateral ovaries. Soft Tissues: Soft tissues and body wall unremarkable. Bones: No acute osseous finding. Severe bilateral hip osteoarthritis IMPRESSION: Mild distal colonic wall edema as can be seen with colitis. Otherwise, no acute abdominopelvic process detected Reviewed, dictated and finalized at location K. [employer] MANAGER
[2024-07-04 13:56] LABS: Basophils Percent Auto 0.1 % (0.2-1.2); Eosinophils Percent Auto 0.6 % (0-4.4); Hematocrit 37.6 % (37.0-47.0); Hemoglobin 11.8 g/dL (12.0-15.0); Immature Granulocyte Absolute 0.01 K/mm3 (0.00-0.031); Immature Granulocyte Percent A 0.1 % (0-0.5); Lymphocytes Absolute Auto 0.71 K/mm3 (0.9-3.2); Lymphocytes Percent Auto 10.2 % (18.3-44.2); Mean Corpuscular HGB Conc 31.4 g/dl (32-36); Mean Corpuscular Volume 82.8 fl (80-100); Mean Platelet Volume 10.6 fl (7.4-10.4); Monocytes Absolute Auto 0.4 K/mm3 (0.1-0.6); Monocytes Percent Auto 5.9 % (2.6-8.5); Neutrophils Absolute Auto 5.8 K/mm3 (1.3-6.7); Neutrophils Percent Auto 83.1 % (45.5-73.1); Platelet Count Result 280 k/mm3 (150-375); Red Blood Count 4.54 M/mm3 (4.2-5.4); Red Cell Distribution Width 15.6 % (11.5-14.5)
[2024-07-04 13:58] LABS: Add Urine Microscopic? NO; Appearance Urine Clear (Clear); Bilirubin Urine Negative (Negative); Blood Urine Negative (Negative); Color Urine Yellow (Yellow); Glucose Urine UA 3+ mg/dL (Negative); Ketones Urine Trace mg/dL (Negative); Leukocyte Esterase Ur Negative LEU/UL (Negative); Nitrate Urine Negative (Negative); Protein Urine Negative (Negative); Specific Grav Ur 1.019 (1.001-1.035); Urobilinogen Urine 0.2 mg/dL (<2.0); pH Urine 5.5 (5.0-9.0)
[2024-07-04 14:04] LABS: Alanine Aminotransferase 15 U/L (6-35); Albumin Level 3.8 g/dL (3.5-5.1); Alkaline Phosphatase 145 U/L (38-126); Anion Gap 8 mmol/L (4-12); Aspartate Amino Transferase 23 U/L (14-36); Bilirubin,Total 0.4 mg/dL (0.2-1.3); Blood Urea Nitrogen 16 mg/dL (7-17); Calcium 8.9 mg/dL (8.4-10.2); Carbon Dioxide 23 mmol/L (22-30); Chloride 107 mmol/L (98-107); Estimated CRCL calculation 74 ml/min; Estimated Glomerular Filt Rate > 60; Glucose 118 mg/dL (65-110); Lipase 56 U/L (23-300); Potassium 3.4 mmol/L (3.4-5.0); Sodium 138 mmol/L (137-145)
--- NOTE | 2024-07-04 15:10 | ED_ITS ---
HPI - General Adult General Chief complaint: Abdominal Pain Stated complaint: abd pain Time Seen by Provider: 07/04/24 15:06 History of Present Illness HPI narrative: Patient 52-year-old female who presents emergency department chief complaint of abdominal pain and rectal bleeding. Patient reports that she started having some blood in diarrhea and reports that she was having abdominal cramping patient reports she has prior history of a gastric bypass reports she has history of abdominal fullness and vomiting after her gastric bypass that she reports that is most likely to her eating too fast. Patient reports she has had endoscopies that showed no ulcerations patient denies fever Related Data Allergies Allergy/AdvReac Type Severity Reaction Status Date / Time No Known Allergies Allergy Verified 07/04/24 15:28 Review of Systems Review of Systems: A 10 system review of systems was completed on the patient and is negative except for what is stated in the HPI. Nursing and ancillary documentation was reviewed. PMFSH Comments Gastric bypass Exam Narrative: GENERAL: Well-appearing, well-nourished, and in no acute distress. HEAD: Normocephalic, atraumatic. EYES: PERRLA and EOMI. ENT: Nares clear, no rhinorrhea or epistaxis. Mucous membranes moist. NECK: Supple. CHEST: Clear to auscultation. No respiratory distress. HEART: Regular rate and rhythm. No murmur heard. Normal peripheral pulses. ABDOMEN: Soft, nontender, nondistended, normal active bowel sounds. : Guaiac-positive stool EXTREMITIES: Normal range of motion. No edema. SKIN: Warm, dry, no rash. NEURO: No focal deficits. Alert and oriented x3. PSYCH: Normal mood and affect. Medical Decision Making [facility] Narrative Medical decision making narrative: Differential diagnosis includes lower GI bleed, gastritis, colitis, diverticulitis, Laboratory studies were obtained on the patient showed a normal white blood cell count hemoglobin was above 11 CT scan of the abdomen pelvis showed evidence of colitis. Discharge Plan Discharge Clinical Impression: Colitis Patient Disposition: Home, Self-Care Condition: Stable Instructions: Antibiotic Form, Abdominal Pain (ED), Colitis (ED) Prescriptions: New ciprofloxacin HCl 500 mg tablet 500 mg PO Q12H 10 Days Qty: 20 0RF metronidazole 500 mg tablet 500 mg PO Q8H 10 Days Qty: 30 0RF Follow-up/Referrals: PHYSICIAN NOT ON STAFF,NONSTAFF [Non-Staff] - Philip Brunson MD [Physician] - Time of Disposition: 15:34
--- NOTE | 2024-07-04 15:14 | PC.NURSE ---
Late entry on initial assessment due to registration issue.
[2024-07-04 15:15] VITALS: BP 135/85; PULSE 101; RESP 18; TEMP 36.5; O2SAT 100
== END 2024-07-04 15:55 | disposition home or self-care (01) ==
PROVIDERS: Emergency Medicine; Emergency Provider Emergency Medicine
DX: K52.9 Noninfective gastroenteritis and colitis, unspecified (principal); Z98.84 Bariatric surgery status
CPT/HCPCS: 36415; 74177; 80053; 81003; 83690; 85025; 86850; 86900; 86901; 99283; 99284; Q9967